=== PATIENT | female | born 1940 | race Caucasian/White ===

== ENCOUNTER 2018-07-19 09:50 | Emergency (ER) | payer MEDICARE ==
[~2018-07-19] VITALS: Ht 165.1 cm; Wt 50.3 kg
[2018-07-19] MEDS ORDERED: HYDROCODONE/APAP 7.5MG-325MG 1 EA TAB PO PRN (10:30)
[2018-07-19] MEDS ORDERED: DEXAMETHASONE SOD PHOS 10 MG/1 ML VIAL INJ ONE (10:45)
--- NOTE | 2018-07-19 11:36 | Diagnostic Imaging Report ---
Radiographs of the right shoulder - 3 views HISTORY: Pain. Dislocation. COMPARISON: None available. FINDINGS: Bones: No acute displaced fracture. Anterior inferior dislocation of the humeral head with respect to the glenoid. Joints: Scattered degenerative change. Soft tissues: The soft tissues appear unremarkable. IMPRESSION: Anterior inferior dislocation of the humeral head with respect to the glenoid. MRI may be of benefit. Signed by: Dr. Mathieu Cox M.D. on 07/19/2018 11:32 AM
[2018-07-19] MEDS ORDERED: MORPHINE SULFATE INJ 4 MG/ML INJ IV STA (12:52)
[2018-07-19] MEDS ORDERED: ONDANSETRON HCL INJ 2 MG/ML VIAL IV STA (12:52)
[2018-07-19 14:17] VITALS: BP 119/64
--- NOTE | 2018-07-19 15:05 | Diagnostic Imaging Report ---
Radiographs of the right shoulder - 1 view HISTORY: Status post shoulder reduction COMPARISON: Right shoulder radiographs on 07/19/18 at 1024 AM. FINDINGS: Bones: No acute displaced fracture. Single view radiograph demonstrating interval reduction of the right humeral head with respect to the glenoid. Joints: Moderate to severe degenerative changes in the right glenohumeral joint. Soft tissues: The soft tissues appear unremarkable. IMPRESSION: Single view radiograph demonstrating interval reduction of the right humeral head with respect to the glenoid. No evidence of displaced fracture. MRI may be considered for evaluation of soft tissue structures. Signed by: Dr. Nancy Crowley MD on 07/19/2018 3:02 PM
== END 2018-07-19 14:37 | disposition home or self-care (01) ==
LOC: ER 09:50
DX: M25.511 Pain in right shoulder (principal); S43.014A Anterior dislocation of right humerus, initial encounter; I10 Essential (primary) hypertension; G89.29 Other chronic pain
CPT/HCPCS: 23650; 73020; 73030; 99284; J1100; J2270; J2405

== ENCOUNTER 2018-08-31 16:00 | Outpatient (RCR) | payer MEDICARE | END 2018-09-02 | LOC: PT 16:00 | PROVIDERS: ATTEND Specialist | DX: M24.411 Recurrent dislocation, right shoulder (principal) | CPT/HCPCS: 97110; 97162; G8984; G8985 ==

== ENCOUNTER 2018-09-16 15:00 | Outpatient (RCR) | payer MEDICARE | END 2018-10-03 | LOC: PT 15:00 | PROVIDERS: ATTEND Specialist | DX: S43.004A Unspecified dislocation of right shoulder joint, initial encounter (principal) ==